=== PATIENT | female | born 1935 | race Caucasian/White ===

== ENCOUNTER 2019-09-14 14:01 | Outpatient (CLI) | payer MEDICARE, OTHER, SELFPAY ==
--- NOTE | 2019-09-14 14:18 | MM_ITS ---
WS: [id number] DIAGNOSTIC BILATERAL DIGITAL MAMMOGRAM WITH CAD HISTORY: HX OF BREAST CA COMPARISON: 08/17/2018 and 07/30/2017 TECHNIQUE: Bilateral craniocaudad, mediolateral oblique, and mediolateral views are submitted. Comput er aided detection utilized. Breast composition: The breasts are heterogeneously dense, which may obscure small masses. Dystrophic calcifications and postsurgical scarring in the LEFT breast. Benign calcifications within each breas t. No suspicious mass. MM/[place] [id number] IMPRESSION: BI-RADS: 2-Benign FOLLOW UP: 1 Year Follow-up
== END 2019-09-14 14:02 | disposition home or self-care (01) ==
LOC: RADSHAW 14:11
PROVIDERS: Family Provider Family Medicine; PCP Family Medicine; Visit Provider Family Medicine
DX: Z85.3 Personal history of malignant neoplasm of breast (principal)
CPT/HCPCS: 77066

== ENCOUNTER 2020-11-21 07:38 | Outpatient (CLI) | payer MEDICARE, OTHER, SELFPAY ==
--- NOTE | 2020-11-21 07:45 | MM_ITS ---
WS: [id number] BILATERAL DIGITAL DIAGNOSTIC MAMMOGRAM MAMMOGRAPHY WITH CAD CLINICAL INFORMATION: HX OF BREAST CA COMPARISON: September 14, 2019 and July 2018July 2017 TECHNIQUE: Bilateral CC, MLO, and ML views. FINDINGS: Prior history of bilateral lumpectomies with radiation therapy. The breasts are composed of heterogeneous fibroglandular density, which can limit the detection of sm all underlying mass lesions. Dystrophic calcifications. Lucent centered calcifications. Postoperative changes upper outer left breast with fat necrosis is similar in appearance to previous. No suspicious focal mass, asymmetry, calcifications, or architectural distortion. No evidence of mateus gnancy. MM/[place] [id number] IMPRESSION: BI-RADS: 2-Benign FOLLOW UP: 1 Year Follow-up Recommend return to annual diagnostic mammography.
== END 2020-11-21 07:39 | disposition home or self-care (01) ==
LOC: RADSHAW 07:43
PROVIDERS: PCP Family Medicine; Visit Provider Family Medicine
DX: Z85.3 Personal history of malignant neoplasm of breast (principal)
CPT/HCPCS: 77066

== ENCOUNTER 2021-11-24 09:24 | Outpatient (CLI) | payer MEDICARE, OTHER, SELFPAY ==
--- NOTE | 2021-11-24 09:34 | XR_ITS ---
WS: [id number] SCREENING DEXA SCAN [facility] CLINICAL INFORMATION: OSTEOPOROSIS COMPARISON: FINDINGS: The LEFT forearm bone mineral density measures 0.432. This corresponds to a T score score of -5.1 and Z score of -1.8. Left femoral neck bone mineral density measures 0.550 g/cm2. This corresponds to a T score of -3.6 an d Z score of -0.8. Right femoral neck bone mineral density measures 0.550 g/cm2. This corresponds to a T score -3.6of an d Z score of -0.8. Mean femoral neck bone mineral density measures 0.550 g/cm2. This corresponds to a T score of -3.6 an d Z score of -0.8. XR/XR DEXA axial skeleton* [id number] IMPRESSION: Osteoporosis Patient's FRAX calculated 10 year probability for major osteoporotic fracture i s 17.2 % and osteoporotic hip fracture is 7.4%.
--- NOTE | 2021-11-24 09:46 | MM_ITS ---
WS: [id number] DIAGNOSTIC BILATERAL 3D TOMOSYNTHESIS DIGITAL MAMMOGRAM WITH CAD LEFT breast ultrasound, limited HISTORY: HX OF BREAST CA COMPARISON: 11/21/2020, 09/14/2019 and 08/17/2018 TECHNIQUE: Bilateral craniocaudad, mediolateral oblique, and mediolateral views are submitted. Spot c ompression LEFT CC and ML. Computer aided detection utilized. Breast composition: There are scattered areas of fibroglandular density. Numerous bilateral calcifica tions within each breast. Greater distribution of calcifications in the LEFT breast. There is also di stortion in the soft tissues of the LEFT breast from prior surgery. There is been no significant inte rval change other than increase in the extent of the calcifications. LEFT breast ultrasound, limited. Ultrasound is directed to the palpable area in the LEFT breast near 3:00. There is a mixture of shado wing from calcifications and increased soft tissue. This increased soft tissue is very similar appear ance to the mammographic findings over numerous prior years. I suspect this is all postsurgical and p osttreatment related changes. There is some distortion of the soft tissues but no increased vasculari ty. MM/[place] [id number] IMPRESSION: BI-RADS: 3-Probably Benign FOLLOW UP: 6 Month Follow-up Other than increase in amount of calcifications in the LEFT breast no soft tiss ue changes over numerous prior years seen by mammography. The findings on the u ltrasound do demonstrate a soft tissue mass with coarse dystrophic which I isaac phil are probably territory sales representative of the findings on the mammogram. Favor these c hanges are all postoperative, postsurgical and posttreatment changes. The new p alpable area is probably from the calcifications. Consider six-month mammogram and ultrasound follow-up of the LEFT breast to confirm stability. Alternatively , a biopsy of the soft tissue at 3:00 seen on the ultrasound can be obtained.
--- NOTE | 2021-11-24 10:31 | US_ITS ---
WS: [id number] DIAGNOSTIC BILATERAL 3D TOMOSYNTHESIS DIGITAL MAMMOGRAM WITH CAD LEFT breast ultrasound, limited HISTORY: HX OF BREAST CA COMPARISON: 11/21/2020, 09/14/2019 and 08/17/2018 TECHNIQUE: Bilateral craniocaudad, mediolateral oblique, and mediolateral views are submitted. Spot c ompression LEFT CC and ML. Computer aided detection utilized. Breast composition: There are scattered areas of fibroglandular density. Numerous bilateral calcifica tions within each breast. Greater distribution of calcifications in the LEFT breast. There is also di stortion in the soft tissues of the LEFT breast from prior surgery. There is been no significant inte rval change other than increase in the extent of the calcifications. LEFT breast ultrasound, limited. Ultrasound is directed to the palpable area in the LEFT breast near 3:00. There is a mixture of shado wing from calcifications and increased soft tissue. This increased soft tissue is very similar appear ance to the mammographic findings over numerous prior years. I suspect this is all postsurgical and p osttreatment related changes. There is some distortion of the soft tissues but no increased vasculari ty. US/US breast LT limited* [id number] IMPRESSION: BI-RADS: 3-Probably Benign FOLLOW UP: 6 Month Follow-up Other than increase in amount of calcifications in the LEFT breast no soft tiss ue changes over numerous prior years seen by mammography. The findings on the u ltrasound do demonstrate a soft tissue mass with coarse dystrophic which I isaac phil are probably practice representative of the findings on the mammogram. Favor these c hanges are all postoperative, postsurgical and posttreatment changes. The new p alpable area is probably from the calcifications. Consider six-month mammogram and ultrasound follow-up of the LEFT breast to confirm stability. Alternatively , a biopsy of the soft tissue at 3:00 seen on the ultrasound can be obtained.
== END 2021-11-24 09:25 | disposition home or self-care (01) ==
PROVIDERS: PCP Family Medicine; Visit Provider Family Medicine
DX: Z85.3 Personal history of malignant neoplasm of breast (principal); M81.0 Age-related osteoporosis without current pathological fracture; R92.1 Mammographic calcification found on diagnostic imaging of breast
CPT/HCPCS: 76642; 77062; 77080

== ENCOUNTER → 2021-12-09 14:14 | Outpatient (BNVA) | payer MEDICARE, OTHER, SELFPAY | PROVIDERS: PCP Family Medicine; Referring Provider Family Medicine; Visit Provider Physician Assistant | DX: S42.202A Unspecified fracture of upper end of left humerus, initial encounter for closed fracture (principal); S32.039A Unspecified fracture of third lumbar vertebra, initial encounter for closed fracture; W06.XXXA Fall from bed, initial encounter; Z98.1 Arthrodesis status | CPT/HCPCS: 72100; 73030; 99204; 99999 ==

== ENCOUNTER 2022-01-05 13:36 | Outpatient (CLI) | payer MEDICARE, OTHER, SELFPAY ==
--- NOTE | 2022-01-05 14:00 | CT_ITS ---
WS: [id number] CT LUMBAR SPINE, noncontrast. HISTORY: fall, lower back pain TECHNIQUE: Contiguous 2.5 mm axial imaging are performed. Sagittal and coronal reformats are submitte d and reviewed. All CT scans at [facility] use at least one of these dose optimization techni ques: automated exposure control; mA and/or kV adjustment per patient size (includes targeted exams w here dose is matched to clinical indication); or iterative reconstruction. IV contrast: None DLP: 940.30 mGy.cm COMPARISON: No similar studies. Lumbar spine radiographs 12/09/2021. Status post prior posterior lumbar fusion extends from L3 to L5. No lucency around the screws and no fractures of the hardware. The RIGHT L3 pedicle screw extends beyond the vertebral body into the post erior disc of L2-3. New compression fracture at L2 with retropulsion by 5 mm of the posterior superior endplate. Fracture is approximately 25% L3 anterolisthesis by 5 mm and L4 anterolisthesis by 6 mm. Mild concavity superior endplate of L3 sim ilar to the prior radiographs. L1-2: Very small RIGHT foraminal disc protrusion. No stenosis. L2-3: Again noted is the fracture line extending through the posterior superior vertebral body. Fract ure extends across the posterior vertebral body. Minimal retropulsion of the posterior superior endpl ate fragment. No significant stenosis. L3-4: Artifact from the patient's hardware. Ligamentum flavum and facet arthritis and osteophytic rid ging. Facet joints are widened. There is a large posterior laminectomy defect. L4-5: Large posterior laminectomy defect. There is a large osteophyte along the posterior disc encroa angeles upon the thecal sac. Thecal sac is widely patent because of the large laminectomy defect. This focal collection of bone or osteophyte measures 16 x 9 mm. There is encroachment into the foramina. L5-S1: Annular disc bulging and osteophytic ridging. Disc slightly contacts the LEFT L4 descending ne rve root. Large posterior laminectomy defect. Emphysematous changes are at the lung bases. There is a small amount of air which is probably within the liver from prior cholecystectomy. There is severe marked constipation and obstipation. CT/CT lumbar spine wo con* [id number] IMPRESSION: 1. Severe osteopenia and increase in lumbar lordosis. 2. Prior lumbar fusion extends from L3 to L5. 3. Large posterior laminectomy defects at the surgical site. 4. New L2 compression fracture by 25%. Fragment of bone from the posterior sup erior endplate with minimal retropulsion. No significant contact on the thecal sac. The L2 fracture extends into the pedicles. 5. Remote fracture L3. 6. Anterolisthesis of L3 and L4. 7. Large osteophyte or bone fragment at the L3-4 disc level encroaching into t he thecal sac. There is a large laminectomy defect at this level therefore oste ophyte does not cause significant central stenosis. 8. Widening of the facet joints at the L2-3 level 9. RIGHT L3 pedicle screw extends into the L2-3 disc space.
== END 2022-01-05 13:37 | disposition home or self-care (01) ==
LOC: RAD 13:42
PROVIDERS: PCP Family Medicine; Visit Provider Physician Assistant
DX: M54.50 Low back pain, unspecified (principal); M85.88 Other specified disorders of bone density and structure, other site; Z98.1 Arthrodesis status; S32.029A Unspecified fracture of second lumbar vertebra, initial encounter for closed fracture; W19.XXXA Unspecified fall, initial encounter; M25.78 Osteophyte, vertebrae
CPT/HCPCS: 72131

== ENCOUNTER → 2022-01-06 08:14 | Outpatient (BNVA) | payer MEDICARE, OTHER, SELFPAY | PROVIDERS: PCP Family Medicine; Visit Provider Physician Assistant | DX: S42.202D Unspecified fracture of upper end of left humerus, subsequent encounter for fracture with routine healing (principal); X58.XXXD Exposure to other specified factors, subsequent encounter; Z98.1 Arthrodesis status | CPT/HCPCS: 73030; 99213; 99999 ==

== ENCOUNTER 2022-01-06 12:49 | Outpatient (CLI) | payer MEDICARE, OTHER, SELFPAY | END 2022-01-06 12:50 | disposition home or self-care (01) | LOC: SPT 12:52 | PROVIDERS: PCP Family Medicine; Visit Provider Physician Assistant | DX: Z46.89 Encounter for fitting and adjustment of other specified devices (principal); S32.020D Wedge compression fracture of second lumbar vertebra, subsequent encounter for fracture with routine healing; X58.XXXD Exposure to other specified factors, subsequent encounter | CPT/HCPCS: 97760; L0456 ==

== ENCOUNTER 2022-01-21 06:00 | Outpatient (RCR) | payer MEDICARE, SELFPAY | END 2022-01-27 23:59 | disposition home or self-care (01) | LOC: SPT 06:00 | PROVIDERS: PCP Family Medicine; Referring Provider Physician Assistant; Visit Provider Physician Assistant | DX: S42.202D Unspecified fracture of upper end of left humerus, subsequent encounter for fracture with routine healing (principal); X58.XXXD Exposure to other specified factors, subsequent encounter | CPT/HCPCS: 97110; 97161 ==

== ENCOUNTER → 2022-01-22 08:31 | Outpatient (BNVA) | payer MEDICARE, SELFPAY | PROVIDERS: PCP Family Medicine; Visit Provider Physician Assistant | DX: S42.202D Unspecified fracture of upper end of left humerus, subsequent encounter for fracture with routine healing (principal); X58.XXXD Exposure to other specified factors, subsequent encounter | CPT/HCPCS: 73030; 99213 ==

== ENCOUNTER 2022-01-28 06:00 | Outpatient (RCR) | payer MEDICARE, OTHER, SELFPAY | END 2022-02-26 23:59 | disposition home or self-care (01) | LOC: SPT 06:00 | PROVIDERS: PCP Family Medicine; Referring Provider Physician Assistant; Visit Provider Physician Assistant | DX: M25.512 Pain in left shoulder (principal); M25.612 Stiffness of left shoulder, not elsewhere classified; S42.202D Unspecified fracture of upper end of left humerus, subsequent encounter for fracture with routine healing; X58.XXXD Exposure to other specified factors, subsequent encounter | CPT/HCPCS: 97110; 97140 ==

== ENCOUNTER 2022-02-27 06:00 | Outpatient (RCR) | payer MEDICARE, OTHER, SELFPAY | END 2022-03-29 23:59 | disposition home or self-care (01) | LOC: SPT 06:00 | PROVIDERS: PCP Family Medicine; Referring Provider Physician Assistant; Visit Provider Physician Assistant | DX: S42.202D Unspecified fracture of upper end of left humerus, subsequent encounter for fracture with routine healing (principal); M25.612 Stiffness of left shoulder, not elsewhere classified; X58.XXXD Exposure to other specified factors, subsequent encounter | CPT/HCPCS: 97110 ==

== ENCOUNTER → 2022-03-05 09:13 | Outpatient (BNVA) | payer MEDICARE, OTHER, SELFPAY | PROVIDERS: PCP Family Medicine; Visit Provider Physician Assistant | DX: S42.202D Unspecified fracture of upper end of left humerus, subsequent encounter for fracture with routine healing (principal); X58.XXXD Exposure to other specified factors, subsequent encounter | CPT/HCPCS: 73030; 99213 ==

== ENCOUNTER 2022-04-29 10:59 | Outpatient (CLI) | payer MEDICARE, OTHER, SELFPAY ==
--- NOTE | 2022-04-29 11:05 | MM_ITS ---
WS: [id number] DIAGNOSTIC LEFT DIGITAL TOMOSYNTHESIS MAMMOGRAPHY WITH CAD. LEFT breast ultrasound, limited HISTORY: 6 month follow-up palpable area LEFT breast. Status post surgery and breast cancer. COMPARISON: 11/24/2021, 11/21/2020 and 09/14/2019 Technique: CC, MLO and ML views. Breast composition: The breasts are heterogeneously dense, which may obscure small masses. Coarse dy strophic calcifications and soft tissue thickening with distortion is reidentified in the upper outer quadrant of the LEFT breast and along the 3:00 axis. No interval change. Very dense calcifications a re identified and these are thought to represent the palpable abnormality. LEFT breast ultrasound, limited. Ultrasound at 3:00, one centimeters from the nipple identifies the complex heterogeneous area with c alcification and shadowing. Very similar in appearance to the prior examination. No increased vascula rity. There are diffuse reticular is present also. MM/[place] [id number] IMPRESSION: BI-RADS: 3-Probably Benign FOLLOW UP: 6 Month Follow-up The postoperative changes and dystrophic coarse calcifications in the upper-out er quadrant of the LEFT breast are unchanged since the most recent study. The s oft tissue component is not increasing. Recommend continued close follow-up. Regino tient to return in 6 months for bilateral annual diagnostic mammography. Ultras ound can be performed and additional imaging of this area can be obtained at th at time.
== END 2022-04-29 11:00 | disposition home or self-care (01) ==
PROVIDERS: PCP Family Medicine; Visit Provider Family Medicine
DX: R92.8 Other abnormal and inconclusive findings on diagnostic imaging of breast (principal)
CPT/HCPCS: 76642; 77061

== ENCOUNTER 2022-12-11 07:56 | Outpatient (CLI) | payer MEDICARE, OTHER, SELFPAY ==
--- NOTE | 2022-12-11 08:09 | MM_ITS ---
WS: [id number] DIAGNOSTIC BILATERAL DIGITAL BREAST TOMOSYNTHESIS MAMMOGRAPHY WITH CAD LEFT breast ultrasound, limited HISTORY: 6MFU; HX OF BREAST CA COMPARISON: 04/29/2022, 11/24/2021, 09/14/2019 TECHNIQUE: Bilateral craniocaudad, mediolateral oblique, and mediolateral views are submitted with to mosynthesis and SM. Spot compression LEFT CC. Computer aided detection utilized. Breast composition: The breasts are heterogeneously dense, which may obscure small masses. Dystrophic calcifications and soft tissue mass in the upper-outer quadrant of the LEFT breast remains stable. T here are additional coarse calcifications in the RIGHT breast. LEFT breast ultrasound, limited. Ultrasound is directed to the upper outer quadrant of the LEFT breast at a similar location as on the prior study. There is dense shadowing and calcifications identified. There is less soft tissue compo nent. Increasing calcification. Mass measures 2.0 x 1.2 cm. MM/[place] [id number] IMPRESSION: BI-RADS: 2-Benign FOLLOW UP: 1 Year Follow-up Dense benign-appearing calcification is probably dystrophic in the upper-outer quadrant of the LEFT breast. No worsening or concerning progression of features . Recommend return to diagnostic mammography.
== END 2022-12-11 07:57 | disposition home or self-care (01) ==
LOC: RAD 07:59
PROVIDERS: PCP Family Medicine; Visit Provider Family Medicine
DX: Z85.3 Personal history of malignant neoplasm of breast (principal); R92.1 Mammographic calcification found on diagnostic imaging of breast
CPT/HCPCS: 76642; 77062; G0279

== ENCOUNTER 2024-10-12 18:10 | Emergency (ER) | payer MEDICARE, SELFPAY ==
--- NOTE | 2024-10-12 18:27 | XRR_ITS ---
PROCEDURE INFORMATION: Exam: XR Chest Exam date and time: 10/12/2024 6:37 PM Age: 89 years old Clinical indication: Shortness of breath TECHNIQUE: Imaging protocol: Radiologic exam of the chest. Views: 1 view. COMPARISON: CR XR shoulder LT min 2V* [id number] 03/05/2022 9:20 AM FINDINGS: Lungs: Pulmonary hyperinflation. Mild diffuse bronchiectasis. Moderate interstitial coarsening, likely chronic. No pulmonary consolidation. Pleural spaces: No pleural effusion or pneumothorax. Heart/Mediastinum: The cardiomediastinal silhouette is within normal limits. Bones/joints: No acute osseous abnormalities are seen. Chronic left proximal humeral fracture. XR/XR chest 1V portable [id number] IMPRESSION: 1. No acute cardiopulmonary disease. 2. Pulmonary hyperinflation with bronchiectasis and chronic lung changes, correlate with COPD.
[2024-10-12 18:32] VITALS: BP 166/71; PULSE 115; RESP 18; TEMP 37.6; O2SAT 90; BMI 16.8
--- NOTE | 2024-10-12 18:52 | W.ED.WEAKNES ---
HPI - Weakness General: Chief complaint: Weakness Stated complaint: flu symptoms Time Seen by Provider: 10/12/24 18:27 History of Present Illness: 89-year-old woman who presents to the emergency room by ambulance with weakness. She says she only takes medicine for thyroid issues. She has had a cough. She has had diarrhea. Apparently she lost control of her bowels and had diarrhea all over herself prior to arrival here. Neighbors states she was weak and seems slightly confused. Here she says she feels fine. She is wanting to go home. She does have a. No abdominal pain. Blood pressure is normal but she is a bit tachycardic. She is a temp of 99.6. Review of Systems Narrative: Constitutional symptoms: Negative except as documented in HPI. Skin symptoms: Negative except as documented in HPI. Eye symptoms: Negative except as documented in HPI. ENMT symptoms: Negative except as documented in HPI. Respiratory symptoms: Negative except as documented in HPI. Cardiovascular symptoms: Negative except as documented in HPI. Gastrointestinal symptoms: Negative except as documented in HPI. Genitourinary symptoms: Negative except as documented in HPI. Musculoskeletal symptoms: Negative except as documented in HPI. Neurologic symptoms: Negative except as documented in HPI. Psychiatric symptoms: Negative except as documented in HPI. Endocrine symptoms: Negative except as documented in HPI. [facility] ED PFSH: Social History Smoking and tobacco/nicotine status: never used tobacco/nicotine Physical Exam Narrative: EXAM NARRATIVE: General: Alert, no acute distress. Skin: Warm, dry. Head: Normocephalic, atraumatic. Neck: Supple, trachea midline. Eye: Extraocular movements are intact. Ears, nose, mouth and throat: Dry oral mucosa Cardiovascular: Regular, tachycardic normal peripheral perfusion. Respiratory: Lungs are clear to auscultation, respirations are non-labored, breath sounds are equal, Symmetrical chest wall expansion. Gastrointestinal: Soft, Nontender, Non distended Musculoskeletal: Normal ROM, no deformity. Neurological: Alert and oriented, No focal neurological deficit observed. Psychiatric: Cooperative, appropriate mood & affect. Course Vital Signs: Vital signs: Vital Signs Temperature 99.6 F 10/12/24 18:32 Pulse Rate 109 H 10/12/24 20:30 Respiratory Rate 16 10/12/24 20:30 Blood Pressure 148/77 10/12/24 20:30 Pulse Oximetry 90 10/12/24 20:30 Oxygen Delivery Me thod Room Air 10/12/24 20:30 MDM - Weakness Medical Decision Making Medical decision making: Differential diagnosis for patient presenting with generalized weakness including but not limited to and based on the above HPI, review of systems and physical exam: Sepsis. Dehydration. Renal failure. Electrolyte abnormalities. Anemia. Congestive heart failure. Hypotension. Coronary syndrome. Hepatitis. Cirrhosis. Infections such as pneumonia, urinary tract infection, [place]ick bourne illness, Cellulitis, Viral infections including influenza and Covid-19. Workup: labwork and lab/exam driven imaging ordered to evaluate, rule in and rule out above pathologies. Chest x-ray: No acute process. No infiltrate. No pneumothorax. This was reviewed and interpreted by myself the emergency room physician. I also reviewed the radiology report. Lab Review: Laboratory results were reviewed and interpreted by myself the emergency room physician. No leukocytosis. No anemia. Mild renal insufficiency. Potassium is a little bit low at 2.9. Patient is influenza A positive. I reviewed the patient's medical record. Reexamination: Patient remained stable. No increased work of breathing. No altered mental status. Says she wants to go home. Assessment and plan: Influenza A Diarrhea Dehydration Hypokalemia ?Normal saline bolus, IV Zofran, IV Pepcid, p.o. liquid potassium - Discharged home - Discussed plan with patient. Answered any questions. - Evaluation and treatment of this problem were appropriate in the emergency setting. Lab Data 10/12/24 19:15 10/12/24 19:15 Radiology Impressions Chest X-Ray 10/12/24 18:27 IMPRESSION: 1. No acute cardiopulmonary disease. 2. Pulmonary hyperinflation with bronchiectasis and chronic lung changes, correlate with COPD. Laboratory Results WBC 7.60 10^3/uL (3.29-11.43) 10/12/24 19:15 RBC 4.56 10^6/uL (3.85-5.65) 10/12/24 19:15 Hgb 12.30 g/dL (11.27-16.99) 10/12/24 19:15 Hct 39.0 % (36-47) 10/12/24 19:15 MCV 85.5 fl (85-98) 10/12/24 19:15 MCH 27.0 pg (27-33) 10/12/24 19:15 MCHC 31.5 g/dL (30-55) 10/12/24 19:15 RDW 15.0 % (12.1-15.1) 10/12/24 19:15 Plt Count 99 10^3/cmm (157-399) L 10/12/24 19:15 MPV 11.6 fL (7.4-10.4) H 10/12/24 19:15 Neut % (Auto) 87.7 % 10/12/24 19:15 Lymph % (Auto) 7.4 % 10/12/24 19:15 [place] % (Auto) 3.7 % 10/12/24 19:15 Eos % (Auto) 0.0 % 10/12/24 19:15 Baso % (Auto) 0.3 % 10/12/24 19:15 Neut # (Auto) 6.67 10^3/uL (1.8-7.7) 10/12/24 19:15 Lymph # (Auto) 0.6 10^3/uL (0.8-4.8) L 10/12/24 19:15 [place] # (Auto) 0.3 10^3/uL (0.2-0.9) 10/12/24 19:15 Eos # (Auto) 0.0 10^3/uL (0.0-0.8) 10/12/24 19:15 Baso # (Auto) 0.0 10^3/uL (0.0-0.1) 10/12/24 19:15 Nucleated RBC % (auto) 0 % 10/12/24 19:15 Nucleated RBCs # 0.0 /100WBC 10/12/24 19:15 Sodium 134 mmol/L (136-145) L 10/12/24 19:15 Potassium 2.9 mmol/L (3.5-5.1) L 10/12/24 19:15 Chloride 98 mmol/L (98-107) 10/12/24 19:15 Carbon Dioxide 21 mmol/L (22-29) L 10/12/24 19:15 Anion Gap 17.9 (5-19) 10/12/24 19:15 BUN 13 mg/dL (8-23) 10/12/24 19:15 Creatinine 1.1 mg/dL (0.5-0.9) H 10/12/24 19:15 GFR Calculation Not Reportable 10/12/24 19:15 Glucose 125 mg/dL (65-115) H 10/12/24 19:15 Calculated Osmolality 280 mOsm/kg (285-295) L 10/12/24 19:15 Lactic Acid 2.2 mmol/L (0.5-2.2) 10/12/24 19:15 Calcium 8.8 mg/dL (8.5-10.5) 10/12/24 19:15 Total Bilirubin 0.7 mg/dL (0.15-1.2) 10/12/24 19:15 AST 39 U/L (0-32) H 10/12/24 19:15 ALT 21 U/L (0-33) 10/12/24 19:15 Alkaline Phosphatase 157 U/L (35-105) H 10/12/24 19:15 C-Reactive Protein 92.2 mg/L (0.0-4.9) H 10/12/24 19:15 Total Protein 7.4 g/dL (6.6-8.7) 10/12/24 19:15 Albumin 4.1 g/dL (3.5-5.2) 10/12/24 19:15 Globulin 3.3 g/dL (1.3-4.6) 10/12/24 19:15 Coronavirus (PCR) Negative (Negative) 10/12/24 19:15 Influenza A (PCR) Positive (Negative) 10/12/24 19:15 Influenza Type B (PCR) Negative (Negative) 10/12/24 19:15 RSV (PCR) Negative (Negative) 10/12/24 19:15 All radiology interpretation(s) finalized by discharge Discharge Plan Discharge Patient Disposition: Home Clinical Impression: Influenza A, Dehydration, Diarrhea, Hypokalemia Condition: Stable Prescriptions: New ondansetron 4 mg tablet,disintegrating 4 mg PO Q8H PRN (Reason: nausea and vomiting) Qty: 10 0RF No Action levothyroxine 100 mcg tablet PO hydrocodone-acetaminophen 5-325 mg tablet 1 tab PO Q4H PRN (Reason: pain) 5 Days Qty: 40 0RF (DME) TLSO BRACE See Rx Instructions .Route .MEDSUPPLY Qty: 1 0RF Rx Instructions: As directed Discharge Orders: Discharge ED (Routine); Ordered 10/12/24 Ordered By: Concepcion Alvarez Referrals: Jillian Donis MD [Primary Care Provider] - Discharge Diet: Advance as tolerated Discharge Activity: Increase activity as tolerated Patient Instructions: Influenza (ED), Opioid Safety, Pain Management Activity Restrictions/Additional Instructions: Thank you for choosing [facility] for your healthcare needs today. Please realize this is an emergency room and that we are providing you with a medical screening exam and this may not be complete and all inclusive of all the testing and or work up that you may need to determine your ailment or severity of your illness. You have been screened and evaluated and felt safe for discharge. Health conditions do change or evolve sometimes and as such it is important that you follow up with your Primary Doctor to be re checked, 3-5 days is a general good time frame for follow up. You are always welcome to return to the ED for re assessment if your symptoms are worsening or you have new concerns Print Language: Irish Coding Level of Care Code ED Reactor Fueling Supervisor for Chg Fwd Related Data Home Medications ?Medication ?Instructions ?Recorded ?Confirmed levothyroxine 100 mcg tablet ea PO 12/09/21 03/05/22 Previous Rx's ?Medication ?Instructions ?Recorded hydrocodone 5 mg-acetaminophen 325 1 tab PO Q4H PRN pain 5 days #40 12/09/21 mg tablet tabs TLSO BRACE #1 ea 01/06/22 ondansetron 4 mg disintegrating 4 mg PO Q8H PRN nausea and 10/12/24 tablet vomiting #10 tabs Allergies Allergy/AdvReac Type Severity Reaction Status Date / Time Sulfa (Sulfonamide Allergy ALGY-Hives Verified 03/05/22 09:26 Antibiotics)
[2024-10-12] MEDS: ondansetron 2 mg/ML SDV 2 mL 8 MG IVP (19:19)
[2024-10-12] MEDS: sodium chloride 0.9% 1,000 ML 999 ML IV (19:19)
[2024-10-12 19:22] VITALS: BP 164/63; PULSE 107; RESP 30; O2SAT 90
[2024-10-12 19:23] LABS: Basophils % 0.3 %; Lymphocytes # 0.6 10^3/uL (0.8-4.8); Lymphocytes % 7.4 %; Mean Corpuscular HGB Conc 31.5 g/dL (30-55); Mean Corpuscular Volume 85.5 fl (85-98); Mean Platelet Volume 11.6 fL (7.4-10.4); Monocytes # 0.3 10^3/uL (0.2-0.9); Monocytes % 3.7 %; Neutrophils # 6.67 10^3/uL (1.8-7.7); Neutrophils % 87.7 %; Nucleated Red Blood Cells % 0 %; Platelet Count 99 10^3/cmm (157-399); Red Blood Count 4.56 10^6/uL (3.85-5.65)
[2024-10-12 19:40] LABS: Alanine Aminotransferase 21 U/L (0-33); Albumin Level 4.1 g/dL (3.5-5.2); Alkaline Phosphatase 157 U/L (35-105); Anion Gap 17.9 (5-19); Aspartate Amino Transferase 39 U/L (0-32); Blood Urea Nitrogen 13 mg/dL (8-23); C Reactive Protein 92.2 mg/L (0.0-4.9); Calcium 8.8 mg/dL (8.5-10.5); Carbon Dioxide 21 mmol/L (22-29); Chloride 98 mmol/L (98-107); Creatinine Clr Calc Pharmacy 24.3307; Globulin 3.3 g/dL (1.3-4.6); Glucose 125 mg/dL (65-115); Osmolality Calculated 280 mOsm/kg (285-295); Sodium 134 mmol/L (136-145); Total Bilirubin 0.7 mg/dL (0.15-1.2); Total Protein 7.4 g/dL (6.6-8.7)
[2024-10-12 19:41] LABS: Lactic Sepsis W/Reflex 2.2 mmol/L (0.5-2.2)
[2024-10-12 19:42] LABS: Potassium 2.9 mmol/L (3.5-5.1)
[2024-10-12 20:06] LABS: Influenza A POSITIVE (Negative); Influenza B NEGATIVE (Negative); Respiratory Syncytial Virus Ce NEGATIVE (Negative); SARS-CoV-2 PCR NEGATIVE (Negative)
[2024-10-12 20:30] VITALS: BP 148/77; PULSE 109; RESP 16; O2SAT 90
[2024-10-12] MEDS: famotidine 20 mg/2 mL INJ 40 MG IVP (20:33)
[2024-10-12] MEDS: potassium chloride oral liq 20 mEq/15 mL UDC 40 MEQ PO (20:33)
--- NOTE | 2024-10-12 21:00 | ECG_ITS ---
[employer] Test Date: 2024-10-12 Pat Name: Sanna Graham Department: Room: Gender: Female Color Maker: : [id number] Requested By: Gil Batres Order Number: [id number] Reading MD: BRODERICK CANTU Measurements Intervals [place] Rate: 117 P: 47 SD: 146 QRS: -24 QRSD: 92 T: 41 QT: 295 QTc: 413 Interpretive Statements SINUS TACHYCARDIA LEFT ATRIAL ENLARGEMENT [-0.15mV P-WAVE IN V1/V2] BORDERLINE LEFT AXIS DEVIATION [QRS AXIS < -20] No previous ECG available for comparison Electronically Signed On 10-14-2024 19:34:30 BOARDING ROOM FIXER by BRODERICK CANTU [email or web address]
[2024-10-12 21:08] LABS: Reflex Lactate Order REFLEX LACTIC ORDERD
[2024-10-12 21:36] VITALS: BP 153/73; PULSE 118; RESP 27; O2SAT 91
== END 2024-10-12 21:39 | disposition home or self-care (01) ==
PROVIDERS: Emergency Medicine; Emergency Provider Emergency Medicine; PCP Family Medicine
DX: J10.1 Influenza due to other identified influenza virus with other respiratory manifestations (principal); Z11.52 Encounter for screening for COVID-19; E86.0 Dehydration; R19.7 Diarrhea, unspecified
CPT/HCPCS: 36415; 71045; 80053; 83605; 85025; 86140; 87040; 87637; 93005; 96361; 96374; 96375; 99285; J2405; J3490; J7030

== ENCOUNTER 2024-10-16 11:21 | Emergency (ER) | payer MEDICARE, SELFPAY ==
[2024-10-16] VITALS (11 sets, daily range): BP systolic 92–123; BP diastolic 52–72; PULSE 91–105; RESP 16–20; TEMP 36.5; O2SAT 90–96; BMI 16.5
--- NOTE | 2024-10-16 12:05 | W.ED.WEAKNES ---
HPI - Weakness General: Chief complaint: Weakness Stated complaint: (dr. jillian Donis) dehydration Time Seen by Provider: 10/16/24 11:38 History of Present Illness: This is an 89-year-old female with a history of chronic pain syndrome and hypothyroidism who presents to the emergency room with weakness. She got to her primary care's office and her blood pressure was low so she was sent to the emergency room. She has had a cough for about a week now. She says she does not feel short of breath. No abdominal pain. No nausea or vomiting. No dysuria. No altered mental status. No focal motor deficits. No lower extremity swelling. Family states that her blood pressure is usually a little bit low but looking back here the few measurements we have in the past were in the 140s to 160s. Review of Systems Narrative: Constitutional symptoms: Negative except as documented in HPI. Skin symptoms: Negative except as documented in HPI. Eye symptoms: Negative except as documented in HPI. ENMT symptoms: Negative except as documented in HPI. Respiratory symptoms: Negative except as documented in HPI. Cardiovascular symptoms: Negative except as documented in HPI. Gastrointestinal symptoms: Negative except as documented in HPI. Genitourinary symptoms: Negative except as documented in HPI. Musculoskeletal symptoms: Negative except as documented in HPI. Neurologic symptoms: Negative except as documented in HPI. Psychiatric symptoms: Negative except as documented in HPI. Endocrine symptoms: Negative except as documented in HPI. [facility] ED PFSH: Social History Smoking and tobacco/nicotine status: never used tobacco/nicotine Physical Exam Narrative: EXAM NARRATIVE: General: Alert, no acute distress. Skin: Warm, dry. Head: Normocephalic, atraumatic. Neck: Supple, trachea midline. Eye: Extraocular movements are intact. Ears, nose, mouth and throat: Tacky oral mucosa Cardiovascular: Regular, Normal peripheral perfusion. Respiratory: Lungs are clear to auscultation, respirations are non-labored, breath sounds are equal, Symmetrical chest wall expansion. Gastrointestinal: Soft, Nontender, Non distended Musculoskeletal: Normal ROM, no deformity. Neurological: Alert and oriented, No focal neurological deficit observed. Psychiatric: Cooperative, appropriate mood & affect. Course Vital Signs: Vital signs: Vital Signs Temperature 97.7 F 10/16/24 11:26 Pulse Rate 96 10/16/24 15:29 Respiratory Rate 16 10/16/24 15:29 Blood Pressure 103/57 10/16/24 15:29 Pulse Oximetry 95 10/16/24 15:29 Oxygen Delivery Me thod Room Air 10/16/24 11:26 MDM - Weakness Medical Decision Making Medical decision making: Differential diagnosis for patient presenting with generalized weakness including but not limited to and based on the above HPI, review of systems and physical exam: Sepsis. Dehydration. Renal failure. Electrolyte abnormalities. Anemia. Congestive heart failure. Hypotension. Coronary syndrome. Hepatitis. Cirrhosis. Infections such as pneumonia, urinary tract infection, [place]ne illness, Cellulitis, Viral infections including influenza and Covid-19. Workup: labwork and lab/exam driven imaging ordered to evaluate, rule in and rule out above pathologies. Lab Review: Laboratory results were reviewed and interpreted by myself the emergency room physician. No leukocytosis. No anemia. Mild renal insufficiency. Urine shows significant infection and some concentration which with the also indicate dehydration. Patient is influenza positive. Chest x-ray: Some chronic changes/scarring. No acute process. No infiltrate. No pneumothorax. This was reviewed and interpreted by myself the emergency room physician. I also reviewed the radiology report. I reviewed the patient's medical record. Reexamination: Patient has been slightly agitated at times. She is angry that she is thirsty. I gave her some water. Oxygen saturations remain above 90 with ambulation. She declines an ABG. She also declines admission. She says she absolutely will not be admitted. Assessment and plan: Influenza UTI Dehydration ? 500 mL normal saline bolus, IV Rocephin. - Discharged home - Discussed plan with patient. Answered any questions. - Evaluation and treatment of this problem were appropriate in the emergency setting. Lab Data 10/16/24 12:05 10/16/24 12:05 Radiology Impressions Chest X-Ray 10/16/24 12:48 IMPRESSION: Presumed chronic bronchiectasis and scarring in the lung bases. Please see above comment. No significant interval change from 10/12/2024. Laboratory Results WBC 5.04 10^3/uL (3.29-11.43) 10/16/24 12:05 RBC 4.47 10^6/uL (3.85-5.65) 10/16/24 12:05 Hgb 12.00 g/dL (11.27-16.99) 10/16/24 12:05 Hct 38.7 % (36-47) 10/16/24 12:05 MCV 86.6 fl (85-98) 10/16/24 12:05 MCH 26.8 pg (27-33) L 10/16/24 12:05 MCHC 31.0 g/dL (30-55) 10/16/24 12:05 RDW 15.9 % (12.1-15.1) H 10/16/24 12:05 Plt Count 113 10^3/cmm (157-399) L 10/16/24 12:05 MPV 11.1 fL (7.4-10.4) H 10/16/24 12:05 Neut % (Auto) 63.3 % 10/16/24 12:05 Lymph % (Auto) 28.0 % 10/16/24 12:05 Tift % (Auto) 6.5 % 10/16/24 12:05 Eos % (Auto) 0.2 % 10/16/24 12:05 Baso % (Auto) 0.4 % 10/16/24 12:05 Neut # (Auto) 3.19 10^3/uL (1.8-7.7) 10/16/24 12:05 Lymph # (Auto) 1.4 10^3/uL (0.8-4.8) 10/16/24 12:05 Tift # (Auto) 0.3 10^3/uL (0.2-0.9) 10/16/24 12:05 Eos # (Auto) 0.0 10^3/uL (0.0-0.8) 10/16/24 12:05 Baso # (Auto) 0.0 10^3/uL (0.0-0.1) 10/16/24 12:05 Nucleated RBC % (auto) 0 % 10/16/24 12:05 Nucleated RBCs # 0.0 /100WBC 10/16/24 12:05 Sodium 138 mmol/L (136-145) 10/16/24 12:05 Potassium 3.5 mmol/L (3.5-5.1) 10/16/24 12:05 Chloride 99 mmol/L (98-107) 10/16/24 12:05 Carbon Dioxide 20 mmol/L (22-29) L 10/16/24 12:05 Anion Gap 22.5 (5-19) H 10/16/24 12:05 BUN 22 mg/dL (8-23) 10/16/24 12:05 Creatinine 1.2 mg/dL (0.5-0.9) H 10/16/24 12:05 GFR Calculation Not Reportable 10/16/24 12:05 Glucose 113 mg/dL (65-115) 10/16/24 12:05 Calculated Osmolality 290 mOsm/kg (285-295) 10/16/24 12:05 Lactic Acid 1.8 mmol/L (0.5-2.2) 10/16/24 12:05 Calcium 9.6 mg/dL (8.5-10.5) 10/16/24 12:05 Total Bilirubin 0.4 mg/dL (0.15-1.2) 10/16/24 12:05 AST 152 U/L (0-32) H 10/16/24 12:05 ALT 62 U/L (0-33) H 10/16/24 12:05 Alkaline Phosphatase 112 U/L (35-105) H 10/16/24 12:05 C-Reactive Protein 47.2 mg/L (0.0-4.9) H 10/16/24 12:05 Total Protein 6.9 g/dL (6.6-8.7) 10/16/24 12:05 Albumin 3.4 g/dL (3.5-5.2) L 10/16/24 12:05 Globulin 3.5 g/dL (1.3-4.6) 10/16/24 12:05 Procalcitonin 0.66 ng/mL (0-0.5) H 10/16/24 12:05 Urine Color Yellow (Yellow) 10/16/24 13:26 Urine Appearance Turbid (CLEAR) A 10/16/24 13:26 Urine pH 6.0 (5-7) 10/16/24 13:26 Ur Specific [place] 1.015 (1.005-1.030) 10/16/24 13:26 Urine Protein 2+ (Negative) A 10/16/24 13:26 Urine Glucose (UA) Negative (Normal) 10/16/24 13:26 Urine Ketones Negative (Negative) 10/16/24 13:26 Urine Blood 2+ (Negative) A 10/16/24 13:26 Urine Nitrate Negative (Negative) 10/16/24 13:26 Urine Bilirubin Negative (Negative) 10/16/24 13:26 Urine Urobilinogen 0.2 mg/dL (Negative) 10/16/24 13:26 Ur Leukocyte Esterase 3+ (Negative) A 10/16/24 13:26 Urine RBC 3-5 /hpf (0-2) 10/16/24 13:26 Urine WBC >100 /hpf (0-5) H 10/16/24 13:26 Ur Squamous Epith Cells 0-5 /hpf (0-5) 10/16/24 13:26 Amorphous Sediment Not Reportable 10/16/24 13:26 Urine Bacteria Exceeds /hpf (NONE) 10/16/24 13:26 Hyaline Casts 7.42 /lpf 10/16/24 13:26 Fine Granular Casts 0-4 /lpf H 10/16/24 13:26 Coronavirus (PCR) Negative (Negative) 10/16/24 11:45 Influenza A (PCR) Positive (Negative) 10/16/24 11:45 Influenza Type B (PCR) Negative (Negative) 10/16/24 11:45 RSV (PCR) Negative (Negative) 10/16/24 11:45 All radiology interpretation(s) finalized by discharge Discharge Plan Discharge Patient Disposition: Home Clinical Impression: Urinary tract infection, Influenza A, Dehydration Condition: Stable Prescriptions: New cefdinir 300 mg capsule 300 mg PO BID 7 Days Qty: 14 0RF No Action levothyroxine 100 mcg tablet 100 mcg PO DAILY (DME) [place] JOHNSON See Rx Instructions .Route .MEDSUPPLY Qty: 1 0RF Rx Instructions: As directed ondansetron 4 mg tablet,disintegrating 4 mg PO Q8H PRN (Reason: nausea and vomiting) Qty: 10 0RF latanoprost 0.005 % drops 1 drp ophthalmic (eye) QPM hydrocodone-acetaminophen 7.5-325 mg tablet 1 tab PO Q12H omeprazole 20 mg capsule,delayed release(DR/EC) 20 mg PO DAILY Discharge Orders: Discharge ED (Routine); Ordered 10/16/24 Ordered By: Concepcion Alvarez Referrals: Jillian Donis MD [Primary Care Provider] - Discharge Diet: Usual diet Discharge Activity: Increase activity as tolerated Patient Instructions: Influenza (ED), Urinary Tract Infection in Older Adults (ED), Opioid Safety, Pain Management Activity Restrictions/Additional Instructions: Thank you for choosing [facility] for your healthcare needs today. Please realize this is an emergency room and that we are providing you with a medical screening exam and this may not be complete and all inclusive of all the testing and or work up that you may need to determine your ailment or severity of your illness. You have been screened and evaluated and felt safe for discharge. Health conditions do change or evolve sometimes and as such it is important that you follow up with your Primary Doctor to be re checked, 3-5 days is a general good time frame for follow up. You are always welcome to return to the ED for re assessment if your symptoms are worsening or you have new concerns Print Language: Kiswahili Coding Level of Care Code ED General Maintenance Mechanic for Chg Fwd Related Data Home Medications ?Medication ?Instructions ?Recorded ?Confirmed levothyroxine 100 mcg tablet 100 mcg PO DAILY 12/09/21 10/16/24 hydrocodone 7.5 mg-acetaminophen 1 tab PO Q12H 10/16/24 10/16/24 325 mg tablet latanoprost 0.005 % eye drops 1 drp ophthalmic (eye) QPM 10/16/24 10/16/24 omeprazole 20 mg capsule,delayed 20 mg PO DAILY 10/16/24 10/16/24 release Previous Rx's ?Medication ?Instructions ?Recorded TLSO BRACE #1 ea 01/06/22 ondansetron 4 mg disintegrating 4 mg PO Q8H PRN nausea and 10/12/24 tablet vomiting #10 tabs cefdinir 300 mg capsule 300 mg PO BID 7 days #14 caps 10/16/24 Allergies Allergy/AdvReac Type Severity Reaction Status Date / Time Sulfa (Sulfonamide Allergy ALGY-Hives Verified 10/16/24 11:37 Antibiotics)
--- NOTE | 2024-10-16 12:12 | ECG_ITS ---
[facility]24[facility]16 Pat Name: Sanna Graham Department: Room: Gender: Female Occupational Therapy Instructor: : 1935 Requested By: Concepcion Batres Order Number: [id number] Chawla MD: Sujata Valente M.D. Measurements Intervals [place] Rate: 103 P: 81 [place]: 132 QRS: -1 QRSD: 102 T: 55 QT: 326 QTc: 429 Interpretive Statements SINUS TACHYCARDIA POSSIBLE LEFT ATRIAL ENLARGEMENT [-0.1mV P-WAVE IN V1/V2] ABNORMAL RHYTHM ECG Compared to ECG 10/12/2024 21:00:46 No significant changes Electronically Signed On 10-16-2024 20:28:41 TOPOGRAPHICAL SURVEYOR by Sujata Valente M.D. [email or web address]
[2024-10-16] MEDS: sodium chloride 0.9% 500 ML 999 ML IV (12:16)
[2024-10-16 12:32] LABS: Basophils % 0.4 %; Eosinophils % 0.2 %; Hematocrit 38.7 % (36-47); Lymphocytes # 1.4 10^3/uL (0.8-4.8); Mean Corpuscular Hemoglobin 26.8 pg (27-33); Mean Corpuscular Volume 86.6 fl (85-98); Mean Platelet Volume 11.1 fL (7.4-10.4); Monocytes # 0.3 10^3/uL (0.2-0.9); Monocytes % 6.5 %; Neutrophils # 3.19 10^3/uL (1.8-7.7); Neutrophils % 63.3 %; Nucleated Red Blood Cells % 0 %; Platelet Count 113 10^3/cmm (157-399); Red Blood Count 4.47 10^6/uL (3.85-5.65); Red Cell Distribution Width 15.9 % (12.1-15.1); White Blood Count 5.04 10^3/uL (3.29-11.43)
[2024-10-16 12:32] LABS: Influenza A POSITIVE (Negative); Influenza B NEGATIVE (Negative); Respiratory Syncytial Virus Ce NEGATIVE (Negative); SARS-CoV-2 PCR NEGATIVE (Negative)
--- NOTE | 2024-10-16 12:48 | XRR_ITS ---
PROCEDURE INFORMATION: Exam: XR Chest Exam date and time: 10/16/2024 12:52 PM Age: 89 years old Clinical indication: Other: Weakness TECHNIQUE: Imaging protocol: Radiologic exam of the chest. Views: 1 view. COMPARISON: CR (CHEST, ) 10/12/2024 6:37 PM FINDINGS: Lungs: Parenchymal opacities are present in the lower lung zones, very similar to 10/12/2024 exam. No older studies are available for comparison. These findings could relate to chronic bronchiectasis and scarring. In the absence of older studies, possibility of superimposed acute process cannot be categorically excluded. Lungs are generally hyperinflated. Pleural spaces: No significant pleural fluid. No pneumothorax detected. Heart/Mediastinum: Heart size within normal range. No pulmonary vascular congestion. Bones/joints: The bones appear osteopenic. There is an old proximal left humeral fracture deformity. XR/XR chest 1V portable [id number] IMPRESSION: Presumed chronic bronchiectasis and scarring in the lung bases. Please see above comment. No significant interval change from 10/12/2024.
[2024-10-16 12:51] LABS: Lactic Sepsis W/Reflex 1.8 mmol/L (0.5-2.2)
[2024-10-16 12:52] LABS: Alanine Aminotransferase 62 U/L (0-33); Albumin Level 3.4 g/dL (3.5-5.2); Alkaline Phosphatase 112 U/L (35-105); Anion Gap 22.5 (5-19); Aspartate Amino Transferase 152 U/L (0-32); Blood Urea Nitrogen 22 mg/dL (8-23); C Reactive Protein 47.2 mg/L (0.0-4.9); Calcium 9.6 mg/dL (8.5-10.5); Carbon Dioxide 20 mmol/L (22-29); Chloride 99 mmol/L (98-107); Creatinine Clr Calc Pharmacy 21.8481; Globulin 3.5 g/dL (1.3-4.6); Glucose 113 mg/dL (65-115); Osmolality Calculated 290 mOsm/kg (285-295); Potassium 3.5 mmol/L (3.5-5.1); Sodium 138 mmol/L (136-145); Total Bilirubin 0.4 mg/dL (0.15-1.2); Total Protein 6.9 g/dL (6.6-8.7)
[2024-10-16 13:44] LABS: Bilirubin Urine Negative (Negative); Blood Urine 2+ (Negative); Glucose Urine UA Negative (Normal); Ketones Urine Negative (Negative); Leukocyte Esterase Urine 3+ (Negative); Nitrate Urine Negative (Negative); Protein Urine 2+ (Negative); Specific Gravity, Urine 1.015 (1.005-1.030); Urine Appearance Turbid (CLEAR); Urine Color Yellow (Yellow); Urobilinogen Urine 0.2 mg/dL (Negative)
[2024-10-16 13:46] LABS: Bacteria Urine EXCEEDS /hpf; Hyaline Casts Urine 7.42 /lpf; Squamous Epithelial Cell Urine 0-5 /hpf (0-5); WBC Urine >100 /hpf (0-5)
[2024-10-16 13:57] LABS: UA Slide Review UA Slide Review Perf
[2024-10-16 13:59] LABS: Add Urine Culture? Yes; Fine Granular Casts Urine 0-4 /lpf
[2024-10-16 14:02] LABS: Procalcitonin 0.66 ng/mL (0-0.5)
[2024-10-16] MEDS: cefTRIAXone 1,000 mg SDV 1000 MG IVP (14:27)
--- NOTE | 2024-10-16 15:42 | PC.RESP ---
pt refused abg
== END 2024-10-16 15:30 | disposition home or self-care (01) ==
PROVIDERS: Emergency Provider Emergency Medicine; PCP Family Medicine
DX: N39.0 Urinary tract infection, site not specified (principal); J10.1 Influenza due to other identified influenza virus with other respiratory manifestations; E86.0 Dehydration; Z11.52 Encounter for screening for COVID-19
CPT/HCPCS: 36415; 71045; 80053; 81001; 83605; 84145; 85025; 86140; 87040; 87077; 87086; 87186; 87637; 93005; 94760; 96361; 96374; 99285; J0696; J7040